=== PATIENT | female | born 1950 | race Asian ===

== ENCOUNTER 2024-10-31 07:26 | Day surgery (SDC) | payer OTHER ==
[2024-10-31] MEDS ORDERED: NA CHLORIDE 0.9% 1,000 ML ONE (08:08)
[2024-10-31 08:09] LABS: PT Prothrombin Time 12.5 SECONDS (10.0-13.0); PTT, Activated Partial Thromb 30.1 SECONDS (24.3-36.9); Protime INR 1.1
[2024-10-31 08:20] VITALS: BMI 25.4
[2024-10-31] MEDS ORDERED: FLUMAZENIL 0.1 MG/ML (5 mL VIAL) IV ONE (08:31)
[2024-10-31] MEDS ORDERED: MIDAZOLAM HCL 2 MG/2 ML INJ ONE (08:31)
[2024-10-31] MEDS ORDERED: ONDANSETRON 4 MG/2 ML VIAL ONE (08:32)
[2024-10-31] MEDS ORDERED: FENTANYL CITR 100 MCG/2 ML ONE (08:32)
[2024-10-31] MEDS ORDERED: NALOXONE HCL 2 MG/2 ML VIAL ONE (08:32)
--- NOTE | 2024-10-31 13:15 | RAD REPORT ---
PROCEDURE: ULTRASOUND GUIDED BIOPSY Pre-procedure diagnosis: Liver mass Post-procedure diagnosis: Same as above. CLINICAL INDICATION: Histopathologic diagnosis and molecular characterization. Female, 74 years old. Left liver lobe mass Previous biopsy of same target: No Additional clinical history: Elevated CEA. Osseous metastatic disease COMPLICATIONS: No immediate complications. IMPRESSION: Percutaneous ultrasound-guided Coaxial core needle biopsy of the dominant left liver lobe mass Additional procedure(s): None. PLAN: Specimen sent for evaluation. PROCEDURE DETAILS: Consent: Informed consent for the procedure including risks, benefits and alternatives was obtained a nd time-out was performed prior to the procedure. Preparation: The site was prepared and draped using all elements of maximal sterile barrier technique including sterile gloves, sterile gown, cap, mask, large sterile sheet, sterile ultrasound probe cover as needed, hand hygiene and cutaneous antisepsis with 2% chlorhexidine. Sedation: Moderate sedation (conscious sedation) Administered by: Nurse, or other independent traine d observer, with level of consciousness and vital signs continuously monitored. Total sedation administered: 0.5 mL Versed and 75 mcg Fentanyl. Total intra-service sedation time: 15 minutes. Imaging prior to biopsy: The patient was positioned supine and initial imaging was performed demonstr ating the sizable left lobe mass. Biopsy: Local anesthesia was administered. Under fluoroscopic guidance, a 17-gauge introducer was krupa sudheer into the mass, and the 18-gauge biopsy needle was advanced to the target and biopsy was performed. The biopsy needle was removed and a sterile dressing was applied. Number of specimens: 3 On-site biopsy touch preparation: None. Additional sampling description: None. Preliminary assessment of sample adequacy: Not applicable. Tract embolization: None. Post-biopsy imaging findings: No immediate complications seen. Contrast used: None. Estimated blood loss: Less than 10 mL.
[2024-10-31 14:24] VITALS: BP 153/78; TEMP 98.3; O2SAT 100
== END 2024-10-31 13:12 | disposition home or self-care (01) ==
LOC: DS 07:26
PROVIDERS: ATTEND Internal Medicine
PROC: 0FB23ZX Excision of Left Lobe Liver, Percutaneous Approach, Diagnostic (ICD-10-PCS; principal; 2024-10-31)
DX: C78.7 Secondary malignant neoplasm of liver and intrahepatic bile duct (principal); C79.51 Secondary malignant neoplasm of bone; I10 Essential (primary) hypertension
CPT/HCPCS: 76942; 36415; 85610; 88307; 85730; 47000; J2250; J3010; J7030; J2310; J2405

== ENCOUNTER 2024-12-19 05:54 | Day surgery (SDC) | payer OTHER ==
[2024-12-18 09:36] LABS: Absolute Eosinophils 0.1 K/uL (0-0.5); Absolute Lymphocytes (CBC) 0.6 K/uL (0.7-4.9); Absolute Monocytes 0.6 K/uL (0.1-1.3); Absolute Neutrophil 4.9 K/uL (1.8-8.0); Basophils % 0.2 % (0-1.3); Hematocrit 30.6 % (36.0-45.0); Hemoglobin 10.5 g/dL (12.0-15.0); Lymphocytes % 9.4 % (15.3-44.8); MCH 30.6 pg (27.0-35.0); MCHC 34.4 g/dL (32.0-36.0); MCV 88.9 fL (80-100); Monocytes % 10.1 % (3.3-12.3); Neutrophils % 79.3 % (41.7-73.7); Nucleated Red Blood Cells % 0.1 % (0-0); Platelets 178 thou/uL (152-406); RBC Red Blood Cell Count 3.44 M/uL (3.86-4.86); Red Cell Distribution Width 14.1 % (12.1-15.2)
[2024-12-18 09:48] LABS: Anion Gap 6.6 mEq/L (5.0-15.0); Potassium 3.6 mEq/L (3.5-5.1)
--- NOTE | 2024-12-18 09:53 | RAD REPORT ---
Procedure: Chest Pa And Lat (2 Views) HISTORY: Preop COMPARISON: none FINDINGS: The lungs appear clear of acute infiltrate. No significant pleural effusion noted. The heart is mildly enlarged. IMPRESSION: No acute abnormality is displayed.
[2024-12-19] MEDS: Ringers Lactate 1,000 ML IV ONE (06:42)
[2024-12-19] MEDS ORDERED: NS 0.9% VIAL 20 ML ONE (07:14)
[2024-12-19] MEDS ORDERED: LIDOCAINE 2% MPF 5 ML VIAL ONE (07:18)
[2024-12-19] MEDS ORDERED: ONDANSETRON 4 MG/2 ML VIAL ONE (07:18)
[2024-12-19] MEDS ORDERED: propofoL 200 MG/20 ML VIAL IV ONE (07:18)
[2024-12-19] MEDS ORDERED: FENTANYL CITR 100 MCG/2 ML ONE (07:19)
[2024-12-19] MEDS: CEFAZOLIN SODIUM 2 GM/VIAL ONE (07:25)
[2024-12-19] MEDS: LIDOCAINE 1% 20 ML MDV ONE (07:52)
[2024-12-19] MEDS ORDERED: Mastisol Adhesive Liq ONE (08:01)
[2024-12-19] MEDS: HEPARIN 5000 UNIT/ML 1 ML VIAL ONE (08:06)
--- NOTE | 2024-12-19 08:35 | P.OP ---
Date of Service: 12/19/24 Preop diagnosis: Advanced liver cancer Postop diagnosis: Same Procedure performed: Placement of right IJ Port-A-Cath device, utilization of Doppler and fluoroscopy Surgeon: Bijan Sharif MD Farm Crew Leader: Cyndi SERRA Estimated blood loss: Minimal Specimen: None Findings: Normal anatomy Anesthesia: General Complications: None none Drains: None Fluids and blood products: Nonapplicable Disposition: Recovery room Operative note: Patient brought to the OR and placed in supine position. General anesthesia began. Patient prepped and draped in the usual sterile fashion. Marcaine 0.5% prescribed locally. Doppler device used to identify the right internal jugular vein. 18-gauge needle used to access the right internal jugular vein and guidewire passed. Position of the guidewire confirmed with fluoroscopy. A 3 cm counterincision made on the right anterior chest. Pocket created. Bleeding controlled cautery. Tunneling device used to tunnel the catheter between the 2 wounds. Salinger technique used with put the tip of the catheter at the SVC right atrial junction. Catheter cut to appropriate size and attached to the Port-A-Cath device. Port-A-Cath device attached to the subcu tissue with 3-0 Vicryl. Port flushed with heparin packed with heparin with good blood flow. 3-0 chromic used to approximate subcutaneous tissue and closed skin. Sterile dressing applied. Patient awakened and taken to recovery room in good general condition. A chest x-ray has been ordered. CC: Dr. Nazario and Melina's office
[2024-12-19] MEDS: HYDROMORPHONE HCL 0.5 MG/0.5 ML INJ ONE (09:01)
--- NOTE | 2024-12-19 09:25 | RAD REPORT ---
EXAMINATION: ONE VIEW CHEST XR CLINICAL INDICATION: Female, 74 years old.,s/p port a cath placement TECHNIQUE: Frontal chest projection is submitted. Examination is limited by patient positioning and t echnique. COMPARISON: 12/18/2024. FINDINGS: Right chest wall port catheter tracks cranially along the right internal jugular vein, loops at the l evel of the mid neck, with a kink at that level, then tracks along the right innominate and SVC to the level of the mid to distal SVC. The lungs are well inflated and clear. No pneumothorax or sizabl e effusion. The heart is normal in size. Mediastinal contours are unremarkable. Expansile lytic lesion with pathologic fracture along the mid to distal left clavicle, stable. IMPRESSION: Loop and kink of the right chest wall port catheter at the level of the mid neck. Catheter tip termin ates in the mid to distal SVC. No pneumothorax. THIS REPORT CONTAINS FINDINGS THAT MAY BE CRITICAL TO PATIENT CARE. The findings were verbally commun icated via telephone to Joy Gutierrez RN, in PACU on 12/19/2024 9:21 AM.
[2024-12-19] MEDS ORDERED: HYDROCODONE/APAP 7.5/325 MG TAB ONE (10:32)
[2024-12-19] MEDS: HYDROCODONE/APAP 7.5/325 MG TAB PO PRN (10:35)
--- NOTE | 2024-12-19 10:40 | RAD REPORT ---
EXAMINATION: ONE VIEW CHEST XR CLINICAL INDICATION: Female, 74 years old.,CHECK FOR LOOP AND KINK TECHNIQUE: Lateral upper chest projection is submitted. Examination is limited by patient positioning and technique. COMPARISON: No prior exam. FINDINGS: Smooth curve of the Port-A-Cath catheter along the mid neck, continuing caudally along the internal j ugular vein, with no evidence of kinking. IMPRESSION: No evidence of kinking of the Port-A-Cath catheter along the mid neck.
[2024-12-19 13:58] VITALS: BP 116/72; TEMP 97.5; O2SAT 94
--- NOTE | 2024-12-19 14:38 | RAD REPORT ---
Exam: Fluoroscopy less than one hour Clinical history portacatheter placement FINDINGS: Fluoroscopy time 0.3 minutes. Fluoroscopic spot images obtained. A central venous catheter has been placed into the superior vena cava. Procedure performed by Dr. Sharif
== END 2024-12-19 11:06 | disposition home or self-care (01) ==
LOC: OR 05:54
PROVIDERS: ATTEND Surgery
PROC: 0JH60WZ Insertion of Totally Implantable Vascular Access Device into Chest Subcutaneous Tissue and Fascia, Open Approach (ICD-10-PCS; principal; 2024-12-19 07:30)
DX: C22.0 Liver cell carcinoma (principal)
CPT/HCPCS: 93005; 85025; 80048; 36415; 71045; 71046; 72020; 36561; J1644 ×2; A4216; J2704; J2003 ×2; J3010; J1171; J2405; J7120; 76000

== ENCOUNTER 2025-01-16 07:20 | Day surgery (SDC) | payer OTHER ==
[2025-01-16] MEDS ORDERED: NA CHLORIDE 0.9% 250 ML ONE (07:30)
[2025-01-16 09:29] VITALS: O2SAT 98; BMI 31.2
[2025-01-16 14:24] LABS: Hematocrit 19.6 % (36.0-45.0); Hemoglobin 6.8 g/dL (12.0-15.0)
[2025-01-16 14:27] VITALS: BP 116/59; TEMP 97.1
== END 2025-01-16 14:26 | disposition home or self-care (01) ==
LOC: DS 07:20
PROVIDERS: ATTEND Internal Medicine
DX: C78.7 Secondary malignant neoplasm of liver and intrahepatic bile duct (principal); I10 Essential (primary) hypertension; C79.51 Secondary malignant neoplasm of bone
CPT/HCPCS: 36415; 86900 ×2; 86850 ×2; 86901 ×2; 86920 ×2; 85018; 85014; 36430 ×2; P9016; J7050